=== PATIENT | male | born 1930 | race Caucasian/White ===

== ENCOUNTER 2019-01-09 10:02 | Day surgery (SDC) | payer MEDICARE ==
[~2019-01-09] VITALS: Ht 182.9 cm; Wt 84.7 kg
[~2019-01-09 10:02] MED LIST: ALLO300T PO; AMLO-150 PO; FURO40TA6 PO; LIDOCAINE 2%, 20ML ONE; LIDOCAINE GEL 2%, 5ML ONE; LISI40TA PO; WARF-36 PO
[2019-01-09] MEDS ORDERED: SODIUM CHLORIDE 0.9% 1,000 ML IV SCH (10:20)
[2019-01-09] MEDS ORDERED: PLEASE ENTER HEIGHT AND WEIGHT MC SCH (11:00)
[2019-01-09 11:01] VITALS: BP 135/77
[2019-01-09 11:50] LABS: INTERNATIONAL NORMALIZED RATIO 1.12 (0.93-1.1); PROTHROMBIN TIME 11.7 Seconds (9.6-11.5)
[2019-01-09] MEDS ORDERED: MIDAZOLAM 1 MG/ML, 5ML ONE (12:30)
[2019-01-09] MEDS ORDERED: FENTANYL PF 100 MCG/2ML ONE (12:30)
== END 2019-01-09 16:25 | disposition home or self-care (01) ==
LOC: OUT 10:02
PROVIDERS: ATTEND Internal Medicine
DX: R91.8 Other nonspecific abnormal finding of lung field (principal); J18.9 Pneumonia, unspecified organism; I10 Essential (primary) hypertension; I35.0 Nonrheumatic aortic (valve) stenosis; Z72.89 Other problems related to lifestyle; Z79.01 Long term (current) use of anticoagulants; Z79.899 Other long term (current) drug therapy; Z87.891 Personal history of nicotine dependence
CPT/HCPCS: 31624; 36415; 71045; 85610; 85730; 87015; 87070; 87102; 87116; 87181; 87186; 87205; 87206; 88112; 88312; 99152; 99153; J2250; J3010; J7030; 88108

== ENCOUNTER → 2019-02-14 | Outpatient (CLI) | payer MEDICARE ==
[~2019-02-14] MED LIST changes: +GADOTERATE 10 MMOL/20 ML SYR ONE; -LIDOCAINE 2%, 20ML ONE; -LIDOCAINE GEL 2%, 5ML ONE
== END | disposition home or self-care (01) ==
LOC: RAD 16:06
PROVIDERS: ATTEND Internal Medicine Infectious Disease
DX: S91.302A Unspecified open wound, left foot, initial encounter (principal); X58.XXXA Exposure to other specified factors, initial encounter; Y93.89 Activity, other specified; Y92.89 Other specified places as the place of occurrence of the external cause; Y99.8 Other external cause status
CPT/HCPCS: 73720; A9575